=== PATIENT | male | born 1935 | race Caucasian/White ===

== ENCOUNTER 2019-10-03 14:53 | Emergency (ER) | payer MEDICARE, BC, SELFPAY ==
--- NOTE | ~2019-10-03 | XR_ITS ---
EXAMINATION: XR hand LT min 3V INDICATION: Left hand pain and swelling TECHNIQUE: Three views of the left hand are obtained. COMPARISON: None available FINDINGS: There is moderate osteoarthritis at the first carpometacarpal joint. Mild polyarticular ost eoarthritis is noted at the metacarpal phalangeal joints and interphalangeal joints. No fracture is i dentified. There is mild soft tissue swelling of the hand. IMPRESSION: 1. Mild soft tissue swelling without acute osseous abnormality. 2. Polyarticular osteoarthritis. Reviewed, dictated and finalized at location A. [facility]
[2019-10-03 15:20] VITALS: BP 118/65; PULSE 61; RESP 20; TEMP 36.6; O2SAT 100
--- NOTE | 2019-10-03 16:00 | ED.UPPEXIN ---
HPI - Extremity Injury (Upper) General Chief Complaint: Extremity Injury, Upper Stated Complaint: L/hand swollen Time Seen by Provider: 10/03/19 16:00 Source: patient Mode of arrival: ambulatory Limitations: no limitations History of Present Illness HPI narrative: Marc Swan is an 84 yo male with a PMH of diabetes, chronic anticoagulation, a fib, high cholesterol, who fell forward on hand a week ago and now has swelling and redness of L hand Related Data Home Medications Medication Instructions Recorded Confirmed amlodipine 2.5 mg PO DAILY 10/03/19 10/03/19 apixaban [Eliquis] 2.5 mg PO DAILY 10/03/19 10/03/19 hydrochlorothiazide 25 mg PO DAILY 10/03/19 10/03/19 metformin 500 mg PO BID 10/03/19 10/03/19 metoprolol tartrate 50 mg PO DAILY 10/03/19 10/03/19 ramipril 10 mg PO DAILY 10/03/19 10/03/19 simvastatin 20 mg PO DAILY 10/03/19 10/03/19 Allergies Allergy/AdvReac Type Severity Reaction Status Date / Time No Known Allergies Allergy Unknown Verified 10/03/19 15:25 Review of Systems Review of Systems: Narrative: CONSTITUTIONAL: Denies fever, chills, sweats. EYES: Denies visual changes, redness, discharge. ENT: Denies rhinorrhea, congestion, sore throat, otalgia. CARDIOVASCULAR: Denies chest pain, palpitations, edema. RESPIRATORY: Denies dyspnea, wheezing, cough GASTROINTESTINAL: Denies abdominal pain, nausea, vomiting, diarrhea. GENITOURINARY: Denies dysuria, hematuria, abnormal discharge SKIN: Denies rash or itching. NEUROLOGIC: Denies numbness, or focal weakness. PSYCHIATRIC: Denies anxiety or depression. Swollen left hand with redness PMFSH Family History Family History Other Heart disease Hypertension Social History Social History (Updated 10/03/19 @ 16:11 by Zonia Temple CNP) Smoking status: Former smoker Alcohol intake: never Comments At time of signature, I agree with nursing past medical, surgical, social and family history. There is no relevant family history pertinent to the presenting complaint. Exam Narrative: Exam Narrative: GENERAL: This is a well-nourished, well-developed patient, in no apparent distress. HEAD: normocephalic, atraumatic. EYES: PERRL. Sclera clear/white. Vision is grossly intact. EARS: External ears normal, . Hearing grossly intact. NOSE: External nose normal with no obvious nasal discharge, nares without redness, no rhinorrhea. THROAT: Mucous membranes moist, NECK: Neck supple, non-tender CARDIOVASCULAR: Regular rate and rhythm without murmurs, gallops, or rubs. RESPIRATORY: Clear to auscultation. Breath sounds equal bilaterally. No wheezes, rales, or rhonchi. GASTROINTESTINAL: Abdomen soft, SKIN: warm, intact with no suspicious lesions or rash, good texture and turgor. NEURO: awake, alert, and oriented to person, place and time. There were no obvious focal neurologic abnormalities. Steady gait EXTREMITIES: Normal range of motion. No edema. L hand: swelling across dorsum; able to flex wrist; good finger opposition, good finger strength BACK: Nontender without deformity or crepitance. Course Course Emergency Course: Xray negative - Ton wrap applied Vital Signs Vital signs: Vital Signs Temperature 97.9 F 10/03/19 15:20 Pulse Rate 61 10/03/19 15:20 Respiratory Rate 20 10/03/19 15:20 Blood Pressure 118/65 10/03/19 15:20 Pulse Oximetry 100 10/03/19 15:20 Temperature 97.9 F 10/03/19 15:20 Pulse Rate 61 10/03/19 15:20 Respiratory Rate 20 10/03/19 15:20 Blood Pressure 118/65 10/03/19 15:20 Pulse Oximetry 100 10/03/19 15:20 MDM - Extremity Injury (Upper) Differential Diagnosis Differential diagnosis: Likely sprain and strain of wrist, fracture of wrist and dislocation of finger Discharge Plan Discharge Clinical Impression: Sprain and strain of wrist Patient Disposition: Home, Self-Care Condition: Stable Instructions: Hand Sprain (ED) P
== END 2019-10-03 16:22 | disposition home or self-care (01) ==
PROVIDERS: Emergency Provider Nurse Practitioner
DX: S63.502A Unspecified sprain of left wrist, initial encounter (principal); S66.912A Strain of unspecified muscle, fascia and tendon at wrist and hand level, left hand, initial encounter; W19.XXXA Unspecified fall, initial encounter; Z87.891 Personal history of nicotine dependence; E11.9 Type 2 diabetes mellitus without complications; I48.91 Unspecified atrial fibrillation; E78.00 Pure hypercholesterolemia, unspecified; Z79.01 Long term (current) use of anticoagulants
CPT/HCPCS: 73130; 99213; G0463

== ENCOUNTER 2020-02-01 07:18 | Emergency (ER) | payer MEDICARE, BC, SELFPAY ==
[2020-02-01 07:22] VITALS: BP 177/78; PULSE 103; RESP 18; TEMP 36.6; O2SAT 98
--- NOTE | 2020-02-01 07:44 | ED.EXTPRO ---
HPI - Extremity Problem General Chief complaint: Extremity Problem,Nontraumatic Stated complaint: hand swelling/pain Time Seen by Provider: 02/01/20 07:36 History of Present Illness HPI Narrative: Patient presents with his for left hand pain. Started about a week ago in his left index finger. He got an x-ray of his hand at that time which just showed osteoarthritis. The pain progressed over to the thumb, and then down to the wrist. He has had no injury. He has no history of arthritis. He has not been sick in the last week or 2. He has a history of hypertension, diabetes, hypercholesterolemia. His surgeries include oral surgery, excision of a skin tumor on the left arm. He does not smoke, he rarely drinks alcohol. MD Complaint: extremity pain and extremity swelling Onset (ago): day(s) Pain Consistency: constant Location: left Severity scale (1-10): 8 Radiation: none Relieving factors: nothing Exacerbating factors: range of motion Associated symptoms: denies other symptoms Related Data Home Medications Medication Instructions Recorded Confirmed amlodipine 2.5 mg PO DAILY 10/03/19 10/03/19 apixaban [Eliquis] 2.5 mg PO DAILY 10/03/19 10/03/19 hydrochlorothiazide 25 mg PO DAILY 10/03/19 10/03/19 metformin 500 mg PO BID 10/03/19 10/03/19 metoprolol tartrate 50 mg PO DAILY 10/03/19 10/03/19 ramipril 10 mg PO DAILY 10/03/19 10/03/19 simvastatin 20 mg PO DAILY 10/03/19 10/03/19 Allergies Allergy/AdvReac Type Severity Reaction Status Date / Time No Known Allergies Allergy Unknown Verified 02/01/20 07:25 Review of Systems Review of Systems: Narrative: CONSTITUTIONAL: Denies fever, chills, or sweats. EYES: Denies visual changes, redness, or discharge. ENT: Denies rhinorrhea, congestion, sore throat, or otalgia. CARDIOVASCULAR: Denies chest pain, palpitations, or edema. RESPIRATORY: Denies cough or dyspnea. GASTROINTESTINAL: Denies abdominal pain, nausea, vomiting, or diarrhea. GENITOURINARY: Denies dysuria or hematuria. SKIN: Denies rash or itching. MUSCULOSKELETAL: He has joint pain, PMFSH Past Medical History Medical History (Updated 02/01/20 @ 09:08 by Melinda Armendariz MD) A-fib Chronic anticoagulation High cholesterol HTN (hypertension) Surgical History Surgical History (Updated 02/01/20 @ 07:49 by Melinda Armendariz MD) History of oral surgery Social History Social History (Updated 02/01/20 @ 07:49 by Melinda Armendariz MD) Smoking status: Former smoker Alcohol intake: current Alcohol use details: Rarely Gender identity (if verbalized by the patient): Male Exam Narrative: Exam Narrative: GENERAL: Well-appearing, well-nourished, and in no acute distress. HEAD: Normocephalic, atraumatic. EYES: PERRLA and EOMI. ENT: Nares clear, no rhinorrhea or epistaxis. Mucous membranes moist. NECK: Supple. CHEST: Clear to auscultation. No respiratory distress. HEART: Regular rate and rhythm. No murmur heard. Normal peripheral pulses. ABDOMEN: Soft, nontender, nondistended, normal active bowel sounds. EXTREMITIES: Left hand has swelling at the thenar prominence, and slight warmth towards the lateral wrist. SKIN: Warm, dry, no rash. NEURO: No focal deficits. Alert and oriented x3. PSYCH: Normal mood and affect. Course Vital Signs Vital signs: Vital Signs Temperature 97.9 F 02/01/20 07:22 Pulse Rate 103 H 02/01/20 07:22 Respiratory Rate 18 02/01/20 07:22 Blood Pressure 177/78 H 02/01/20 07:22 Pulse Oximetry 98 02/01/20 07:22 Temperature 97.9 F 02/01/20 07:22 Pulse Rate 58 L 02/01/20 08:54 Respiratory Rate 18 02/01/20 08:54 Blood Pressure 151/82 H 02/01/20 08:54 Pulse Oximetry 96 02/01/20 08:54 MDM - Extremity (Nontraumatic) Lab Data Result diagrams: 02/01/20 08:10 02/01/20 08:10 Labs: Lab Results 02/01/20 02/01/20 Range/Units 08:10 08:10 WBC 7.8 (4.5-10.0) K/mm3 RBC 4.43 L (4.6-6.20) M/mm3 Hgb 14.3 (14.0-1
[2020-02-01 08:18] LABS: Basophils Percent Auto 0.4 % (0.2-1.2); Eosinophils Absolute Auto 0.2 K/mm3 (0-0.3); Hematocrit 40.7 % (42.0-52.0); Hemoglobin 14.3 g/dL (14.0-18.0); Immature Granulocyte Absolute 0.03 K/mm3 (0.00-0.031); Immature Granulocyte Percent A 0.4 % (0-0.5); Lymphocytes Absolute Auto 0.96 K/mm3 (0.9-3.2); Lymphocytes Percent Auto 12.3 % (18.3-44.2); Mean Corpuscular HGB Conc 35.1 g/dl (32-36); Mean Corpuscular Hemoglobin 32.3 pg (26-34); Mean Corpuscular Volume 91.9 fl (80-100); Mean Platelet Volume 9.7 fl (7.4-10.4); Monocytes Absolute Auto 0.8 K/mm3 (0.1-0.6); Monocytes Percent Auto 10.2 % (2.6-8.5); Neutrophils Absolute Auto 5.9 K/mm3 (1.3-6.7); Neutrophils Percent Auto 74.7 % (45.5-73.1); Platelet Count Result 175 k/mm3 (150-375); Red Blood Count 4.43 M/mm3 (4.6-6.20); Red Cell Distribution Width 12.8 % (11.5-14.5); White Blood Count 7.8 K/mm3 (4.5-10.0)
[2020-02-01] MEDS: COLCHICINE 0.6 MG TABLET PO (08:18)
[2020-02-01] MEDS: predniSONE 20 MG TABLET 60 MG PO (08:18)
[2020-02-01] MEDS: INDOMETHACIN 25 MG CAPSULE PO (08:18)
[2020-02-01 08:36] LABS: Alanine Aminotransferase 19 U/L (4-50); Albumin Level 4.6 g/dL (3.5-5.1); Alkaline Phosphatase 70 U/L (38-126); Aspartate Amino Transferase 32 U/L (17-59); Bilirubin,Total 1.1 mg/dL (0.2-1.3); Blood Urea Nitrogen 11 mg/dL (9-20); CRP < 0.5 mg/dL (<1.0); Calcium 9.6 mg/dL (8.4-10.2); Carbon Dioxide 31 mmol/L (22-30); Chloride 92 mmol/L (98-107); Estimated CRCL calculation 61 ml/min; Estimated Glomerular Filt Rate > 60; Glucose 118 mg/dL (75-110); Potassium 4.5 mmol/L (3.4-5.0); Sodium 130 mmol/L (137-145)
[2020-02-01 08:41] LABS: Erythrocyte Sedimentation Rate 15 mm/hr (0-20)
[2020-02-01 08:54] VITALS: BP 151/82; PULSE 58; RESP 18; O2SAT 96
== END 2020-02-01 08:54 | disposition home or self-care (01) ==
PROVIDERS: Emergency Provider Emergency Medicine
DX: M19.90 Unspecified osteoarthritis, unspecified site (principal); I48.91 Unspecified atrial fibrillation; E78.5 Hyperlipidemia, unspecified; I10 Essential (primary) hypertension; Z79.01 Long term (current) use of anticoagulants
CPT/HCPCS: 36415; 80053; 85025; 85652; 86140; 99283; A9270; J7512

== ENCOUNTER 2021-10-26 10:08 | Emergency (ER) | payer MEDICARE, BC, SELFPAY ==
--- NOTE | ~2021-10-26 | XR_ITS ---
EXAMINATION: XR wrist RT min 3V DATE: 10/26/2021 11:00 INDICATION: Right wrist swelling and erythema TECHNIQUE: Posteroanterior, ulnar deviation, oblique, and lateral views of the right wrist were obtai colleen. COMPARISON: none FINDINGS: Alignment is normal. No fracture. Mild osteoarthritis at the radiocarpal, distal radioulnar, triscaph e, first carpometacarpal, first-third metacarpophalangeal and first interphalangeal and fifth proxima l interphalangeal joints. No cortical erosions or periosteal reaction. Subtle chondrocalcinosis in th e region of the triangular fibrocartilage complex. Mild soft tissue swelling at the dorsum of the car pus. IMPRESSION: 1. Mild polyarticular osteoarthritis at the right wrist and visualized hand. The involvement of the s econd and third metacarpophalangeal joints as well as the presence of chondral calcinosis at the tria ngular fibrocartilage complex raises the possibility of calcium pyrophosphate deposition (CPPD) disea se. Reviewed, dictated and finalized at location A. IMPRESSION: 1. Mild polyarticular osteoarthritis at the right wrist and visualized hand. Th e involvement of the second and third metacarpophalangeal joints as well as the presence of chondral calcinosis at the triangular fibrocartilage complex raise s the possibility of calcium pyrophosphate deposition (CPPD) disease.
[2021-10-26 10:26] VITALS: BP 180/85; PULSE 86; RESP 18; TEMP 36.3; O2SAT 100
--- NOTE | 2021-10-26 10:26 | ED.EXTPRO ---
HPI - Extremity Problem General Chief complaint: Extremity Injury, Upper Stated complaint: swollen rt wrist Time Seen by Provider: 10/26/21 10:26 Source: patient, family (), RN notes reviewed and old records reviewed Mode of arrival: ambulatory Limitations: no limitations History of Present Illness HPI Narrative: 86-year-old male presents to the [facility] with complaints of redness to the dorsal aspect right wrist. reports that the swelling started yesterday. Patient reports the discomfort, pain started approximately 1 week ago. Has taken Tylenol with no relief. Full ROM, 2 seconds, sensation intact in all 5 fingers, strong testing analyst noted Denies any trauma MD Complaint: extremity pain and extremity swelling Related Data Home Medications Medication Instructions Recorded Confirmed amlodipine 2.5 mg PO DAILY 10/03/19 10/26/21 apixaban [Eliquis] 2.5 mg PO DAILY 10/03/19 10/26/21 hydrochlorothiazide 25 mg PO DAILY 10/03/19 10/26/21 metformin 500 mg PO BID 10/03/19 10/26/21 metoprolol tartrate 50 mg PO DAILY 10/03/19 10/26/21 ramipril 10 mg PO DAILY 10/03/19 10/26/21 simvastatin 20 mg PO DAILY 10/03/19 10/03/19 Allergies Allergy/AdvReac Type Severity Reaction Status Date / Time No Known Allergies Allergy Unknown Verified 10/26/21 10:31 Review of Systems Review of Systems: All systems reviewed & are unremarkable except as noted in HPI and below Constitutional: Constitutional: Reports no additional constitutional complaints, Denies chills and Denies fever(s) Eyes: Eyes: Reports no additional eye complaints ENT: Reports system reviewed and no additional complaints, except as documented Cardiovascular: Cardiovascular: Reports no additional cardiovascular complaints and Denies chest pain Respiratory: Respiratory: Reports no additional respiratory complaints, Denies cough, Denies dyspnea and Denies wheezing Gastrointestinal: Gastrointestinal: Reports no additional gastrointestinal complaints and Denies abdominal pain Musculoskeletal: Musculoskeletal: Reports as per HPI, Reports arthralgias (right wrist) and Reports joint swelling (dorsal right wrist) Integumentary/Breasts: Skin/Breast: Reports as per HPI and Reports erythema (dorsal right wrist) Neurologic: Reports system reviewed and no additional complaints, except as documented Psychiatric: Psychiatric: Reports no additional psychiatric complaints Allergic/Immunologic: Allergic/Immunologic: Reports no additional allergic/immunologic complaints PMFSH Past Medical History Medical History A-fib Chronic anticoagulation Diabetes High cholesterol HTN (hypertension) Surgical History Surgical History History of oral surgery Family History Family History Other Heart disease Hypertension Social History Social History Smoking status: Former smoker Alcohol intake: current Alcohol use details: Rarely Gender identity (if verbalized by the patient): Male Comments At the time of my signature, I reviewed and agree with the nursing past medical, surgical, social, and family history. There is no relevant family history pertinent to the patient complaint. Exam Const: General: healthy appearing, no acute distress and alert Nutritional Appearance: well nourished Orientation/consciousness: patient oriented x3 Limitations: no limitations HENMT: Head: normal to inspection Ears: external ears normal Eyes: Pupils: Equal, round and reactive pupils present Neck: Neck: normal visual inspection, no lymphadenopathy and no meningeal signs Chest: Chest palpation & inspection: normal inspection of the chest Resp: Effort & Inspection: normal respiratory effort and no use of accessory muscles Auscultation: clear to auscultation bilaterally
--- NOTE | 2021-10-26 10:46 | PC.NURSE ---
1045- Pt states, he just had a big bowl of fresh fruit for breakfast.
[2021-10-26 12:00] LABS: Glucose Point of Care 201 mg/dl (65-105)
== END 2021-10-26 11:35 | disposition home or self-care (01) ==
PROVIDERS: Emergency Provider Nurse Practitioner; PCP Family Medicine
DX: M19.031 Primary osteoarthritis, right wrist (principal); Z87.891 Personal history of nicotine dependence; I48.91 Unspecified atrial fibrillation; E11.9 Type 2 diabetes mellitus without complications; E78.00 Pure hypercholesterolemia, unspecified; I10 Essential (primary) hypertension; Z79.01 Long term (current) use of anticoagulants
CPT/HCPCS: 73110; 82948; 99213; G0463